=== PATIENT | female | born 1935 | race American Indian/Alaskan Native ===

== ENCOUNTER 2016-11-18 05:46 | Inpatient (IN) | payer MEDICARE ==
[2016-11-15 07:55] VITALS: BMI 29.9
--- NOTE | 2016-11-18 06:48 | CP.PCM.HP ---
History of Present Illness - History of Present Illness History of Present Illness: Orthopedist: Dr Rolon Chief Complaint: Painful right hip HPI: 80 years old female with no significant past medical hx, has been having severe right hip pain diagnosed as Osteoarthritis. She had been treated with analgesics for the past 2-3 years without much improvement. Because of failure of conventional treatment she has decided to have surgery done. She is here for an elective Right Total hip replacement. No fever, Palpitation, SOB, chest pain , nausea, vomits, diarrhea nor urinary symptoms. PMH: Cataract; Glaucoma; HLD PSH: Hysterectomy, Catract extreaction SH: Former smoker; Occasional alcohol; No illegal drug use; Lives alone FH: Sasha of Brain tumor Allergies: NKDA Medications: Crestor Present on Admission - Present on Admission Any Indicators Present on Admission: No History of DVT/PE: No History of Uncontrolled Diabetes: No Urinary Catheter: No Decubitus Ulcer Present: No Review of Systems - Constitutional Constitutional: absent: Anorexia, Chills, Fatigue, Fever, Headache - EENT Eyes: Requires Corrective Lenses. absent: Blurred Vision, Diplopia, Floaters, Sees Flashes Ears: absent: Decreased Hearing, Ear Discharge, Ear Pain, Tinnitus Nose/Mouth/Throat: absent: Epistaxis, Nasal Congestion, Nasal Discharge Additional comments: Upper and lower denture - Cardiovascular Cardiovascular: absent: Chest Pain, Dyspnea, Edema - Respiratory Respiratory: absent: Cough, Dyspnea, Wheezing, Stridor - Gastrointestinal Gastrointestinal: absent: Abdominal Pain, Constipation, Diarrhea, Nausea, Vomiting - Genitourinary Genitourinary: absent: Dysuria, Hematuria, Urinary Frequency, Freq UTI - Musculoskeletal Musculoskeletal: Arthralgias. absent: Muscle Cramps, Muscle Weakness, Myalgias Additional comments: Pain to the right hip on ambulation - Integumentary Integumentary: absent: Skin Ulcer, Sores, Striae, Swelling - Neurological Neurological: absent: Dizziness, Tingling, Weakness - Psychiatric Psychiatric: absent: Anxiety, Depression, Panic Attacks - Endocrine Endocrine: absent: Palpitations, Polydipsia, Polyphagia, Polyuria - Hematologic/Lymphatic Hematologic: absent: Easy Bleeding, Easy Bruising Past Patient History - Past Medical History & Family History Past Medical History?: Yes - Past Social History Smoking Status: Former Smoker Chewing Tobacco Use: No Cigar Use: No Alcohol: Occasional Home Situation {Lives}: Alone - CARDIAC Hx Cardiac Disorders: Yes Hx Hypercholesterolemia: Yes - PULMONARY Hx Respiratory Disorders: No - NEUROLOGICAL Hx Neurological Disorder: No - HEENT Hx HEENT Problems: Yes Hx Cataracts: Yes - RENAL Hx Chronic Kidney Disease: No - ENDOCRINE/METABOLIC Hx Endocrine Disorders: No - HEMATOLOGICAL/ONCOLOGICAL Hx Blood Disorders: No - INTEGUMENTARY Hx Dermatological Problems: No - MUSCULOSKELETAL/RHEUMATOLOGICAL Hx Musculoskeletal Disorders: Yes Hx Arthritis: Yes Hx Osteoarthritis: Yes Other/Comment: LIMIT JOINT MOTION - GASTROINTESTINAL Hx Gastrointestinal Disorders: No - GENITOURINARY/GYNECOLOGICAL Hx Genitourinary Disorders: No - PSYCHIATRIC Hx Psychophysiologic Disorder: No - SURGICAL HISTORY Hx Surgeries: Yes Hx Appendectomy: Yes Hx Cataract Extraction: Yes (O.D) - ANESTHESIA Hx Anesthesia: Yes Hx Anesthesia Reactions: No Hx Malignant Hyperthermia: No Has any member of the family had a problem w/ anesthesia?: No Meds Allergies/Adverse Reactions: Allergies Allergy/AdvReac Type Severity Reaction Status Date / Time No Known Allergies Allergy Verified 11/15/16 07:54 Physical Exam - Constitutional Appears: No Acute Distress - Head Exam Head Exam: ATRAUMATIC, NORMAL INSPECTION, NORMOCEPHALIC - Eye Exam Eye Exam: EOMI, Normal appearance Pupil Exam: NORMAL ACCOMODATION, PERRL - ENT Exam ENT Exam: Mucous Membranes Moist, Normal Exam, Normal External Ear Exam, Normal Oropharynx - Neck Exam Neck exam: Positive for: Full Rom, Normal Inspection. Negative for: Lymphadenopathy, Tenderness - Respiratory Exam Respiratory Exam: Clear to Auscultation Bilateral. absent: Rales, Rhonchi, Wheezes - Cardiovascular Exam Cardiovascular Exam: REGULAR RHYTHM, RRR, +S1, +S2. absent: Gallop, JVD - GI/Abdominal Exam GI & Abdominal Exam: Normal Bowel Sounds, Soft. absent: Mass, Organomegaly, Tenderness - Rectal Exam Rectal Exam: Deferred - Extremities Exam Extremities exam: Positive for: full ROM, normal inspection. Negative for: joint swelling, pedal edema - Back Exam Back exam: NORMAL INSPECTION. absent: CVA tenderness (L), CVA tenderness (R) - Neurological Exam Neurological exam: Alert, Altered, CN II-XII Intact, Oriented x3, Reflexes Normal - Psychiatric Exam Psychiatric exam: Normal Affect, Normal Mood - Skin Skin Exam: Dry, Intact, Normal Color, Warm Results - Vital Signs Recent Vital Signs: Last Vital Signs Temp 97 F L 11/18/16 06:34 Pulse 69 11/18/16 06:37 Resp 20 11/18/16 06:34 BP 139/86 11/18/16 06:34 Pulse Ox 99 11/18/16 06:34 - Labs Labs: 11/11/16 Hb 13g/dl Ht 40 WBC 8.0 Na+ 143 K+4.0 Creatinine: 1.0 BUN 12 CXR no infiltrate/ Aorta Tortouso Assessment & Plan - Assessment and Plan (Free Text) Assessment: #. Osteoarthritis #. HLD #. Glaucoma Plan: 80 years old female with no significant past medical hx, has been having severe right hip pain diagnosed as Osteoarthritis. She had been treated with analgesics for the past 2-3 years without much improvement. Because of failure of conventional treatment she has decided to have surgery done. She is here for an elective Right Total hip replacement. #. Osteoarthritis For Elective Right Total hip replacement - consult Dr Rolon Orthopedic - post surgery Pain management - Post surgery DVT prophylaxis - Post surgery PT/OT #. HLD - Crestor #. Glaucoma - patient to give name of eye drops #. Post surgery DVT Prophylaxis #. code Status Full The patient was cleared for surgery by her PMD. - Date & Time Date: 11/18/16 Time: 06:48
[2016-11-18] MEDS ORDERED: Rocuronium 10 mg/ml (5 ml) ONE ×2 (07:00→11:02)
[2016-11-18] MEDS ORDERED: ePHEDrine 50 mg/ml Inj ONE (07:00)
[2016-11-18] MEDS ORDERED: Succinylcholine 200 mg/10 ml Inj IV ONE (07:00)
[2016-11-18] MEDS ORDERED: Etomidate 20 mg/10ml Inj IV ONE (07:00)
[2016-11-18] MEDS ORDERED: Phenylephrine 10 mg/ml Inj ONE (07:00)
[2016-11-18] MEDS ORDERED: Propofol 10 mg/ml Inj (20 ML) ONE (07:00)
[2016-11-18] MEDS ORDERED: Absorbable Gelatin Sponge Size 100 ONE (07:04)
[2016-11-18] MEDS ORDERED: Bacitracin Ointment 30 GM TUBE ONE (07:04)
[2016-11-18] MEDS ORDERED: Thrombin Topical 5,000 IU Spray Kit ONE (07:05)
[2016-11-18] MEDS ORDERED: Sevoflurane - Inhalation Anesthetic Liq (250 ml) ONE (07:12)
[2016-11-18] MEDS ORDERED: Midazolam 2 MG/2 ML VIAL ONE (08:00)
[2016-11-18] MEDS ORDERED: Morphine 1 mg/ml preservative-free Inj(Duramorph) ONE (08:01)
[2016-11-18] MEDS ORDERED: Lactated Ringer's 1,000 ML IV ONE ×3 (08:55→13:05)
[2016-11-18] MEDS ORDERED: Neostigmine Methylsulfate 3mg/3ml Syringe IV ONE (12:57)
--- NOTE | 2016-11-18 13:41 | PCM.SURG1 ---
Surgeon's Initial Post Op Note - Surgeon's Notes Surgeon: Dr. Gonzales MD Animal Chiropractor: Dr. Octavia Ryan, PGY1; JAS PendletonA Type of Anesthesia: General Endo, Spinal Anesthesia Administered By: Dr. Olga MD Pre-Operative Diagnosis: Right hip primary osteoarthritis. Operative Findings: See dictation. Time in room: 08:55; Incision time: 10:25; End Time 13:25; Time out of room: 13:35 Post-Operative Diagnosis: Right hip primary osteoarthritis Operation Performed: 1) Right total hip replacement. 2) Rigth femoral neck osteotom. 3) Arthrotomy & synovectomy. 4) Autogenopus bone graft of acetabulum. 5) Release of Ilio-psoas tendon. Specimen/Specimens Removed: None Estimated Blood Loss: EBL {In ML}: 475 Blood Products Given: N/A Drains Used: No Drains Post-Op Condition: Good Date of Surgery/Procedure: 11/18/16 Time of Surgery/Procedure: 13:35
[2016-11-18] MEDS ORDERED: HYDROmorphone 0.5 mg/0.5 ml ISec IVP PRN (13:42)
[2016-11-18] MEDS ORDERED: DiphenhydrAMINE 50 mg/ml Inj IVP PRN (13:47)
[2016-11-18] MEDS ORDERED: Naloxone 0.4 mg/ml Inj (Adult) IVP PRN (13:47)
--- NOTE | 2016-11-18 15:34 | RAD ---
Indication: Status post hip replacement surgery Comparison: None available Right hip radiographs Findings: The patient is status post right hip arthroplasty. Alignment appears satisfactory. Soft tissue swelling, subcutaneous emphysema, and surgical aleksander compatible with recent postoperative history. Degenerative changes of the lower lumbar spine. Impression: Status post right hip arthroplasty as above.
[2016-11-18] MEDS ORDERED: Sodium Chloride 0.9% 1,000 ML IV SCH (16:30)
--- NOTE | 2016-11-18 16:54 | RAD ---
PROCEDURE: Fluoroscopy up to 1 hr. HISTORY: ORIF RIGHT HIP COMPARISON: None TECHNIQUE: Standard protocol for this study/examination. FINDINGS: Total fluoroscopic time (continuous mode) utilized during the procedure: 22.5 seconds. Submitted images from the current procedure: 11.0 IMPRESSION: Less than 1 hr fluoroscopic time utilized during performance of the procedure.
[2016-11-18] MEDS: ceFAZolin 1 GM in Sodium Chloride 0.9% 100 ML IVPB SCH (18:23)
[2016-11-19] MEDS: ceFAZolin 1 GM in Sodium Chloride 0.9% 100 ML IVPB SCH ×2 (00:58→08:46)
[2016-11-19 07:43] LABS: MEAN CELL VOLUME 90.4 fl (81.0-99.0); MEAN CORPUSCULAR HEMOGLOBIN 28.7 pg (27.0-31.0); MEAN CORPUSCULAR HGB CONC 31.8 g/dL (33.0-37.0); WHITE BLOOD COUNT 9.4 K/uL (4.8-10.8)
[2016-11-19 08:01] LABS: PARTIAL THROMBOPLASTIN TIME 23.8 SECONDS (23.3-32.5)
[2016-11-19 08:13] LABS: BLOOD UREA NITROGEN 9 mg/dl (7-17); CALCIUM 8.1 mg/dL (8.4-10.2); CARBON DIOXIDE 19 mmol/L (22-30); CHLORIDE 105 mmol/L (98-107); GFR AFRICAN-AMERICAN > 60; GLUCOSE,RANDOM 146 mg/dL (65-105); SODIUM 133 mmol/l (132-148)
[2016-11-19 08:19] LABS: POTASSIUM 4.7 MMOL/L (3.6-5.0)
[2016-11-19] MEDS: Enoxaparin 40 mg Syringe SC SCH (08:48)
[2016-11-19] MEDS: Pantoprazole 40 mg EC Tab PO SCH (08:48)
--- NOTE | 2016-11-19 09:52 | OP ---
PROCEDURE DATE: 11/18/2016 PREOPERATIVE DIAGNOSIS: Primary right hip osteoarthritis. 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 PROCEDURES: 1. Right total hip replacement, anterior approach. 2. Right femoral neck osteotomy. 3. Arthrotomy and synovectomy. 4. Release of iliopsoas tendon. 5. Autogenous bone graft to the acetabulum. SURGEON: Brett Rolon MD KNIFEMAN: Dr. Octavia Ashraf, PGY-1 SECOND MICROFILMING DOCUMENT PREPARER: Alana Levy, Certified Registered Nursing [place] ANESTHESIA: General endotracheal anesthesia, spinal anesthesia by Dr. Espinoza. SPECIMENS REMOVED: Bone, cartilage, synovium. BLOOD LOSS: Approximately 400 mL. BLOOD PRODUCTS: None given. DRAINS: None. POSTOPERATIVE CONDITION: Good. OPERATIVE INDICATION: The patient is a 80-year-old woman who is status post severe right hip pain an d restricted range of motion. The patient has been suffering with this for a period of time. The pa tient has also some low back pain, but her primary presenting complaint is pain and restricted range of motion of the right hip with evidence of a flexion contracture. The patient has a mild leg length inequality, right less than left. The patient seeks consultation in my office for total hip replace ment arthroplasty. The patient can no longer stand the discomfort. The patient was cleared by her [facility] doctor. Pros, cons, risks and benefits of surgical approach were discussed. The possibility of mechanical failure, infection, thromboembolic disease, recurrent or persistent leg length inequali ty, secondary or tertiary surgery is discussed. The patient wishes the surgery to be accomplished. After having obtained informed consent in the above fashion, after having identified side, site and p rocedure in a critical pause/timeout, after the satisfactory induction of the anesthetic by Dr. Yolanda rizvi, spinal and general, the patient identified in the supine position with all bony prominences well padded, the patient is placed in the AMIS positioner for the anterior approach to the hip, the anteri or Hueter approach to the hip. OPERATIVE PROCEDURE: After having obtained informed consent, after having identified side, site and procedure in a critical pause/timeout, after the satisfactory induction of the anesthetic, the right lower extremity is placed in a traction device with the foot of the operating room table broken. All bony prominences are well padded. The initial incision, after sterilely prepping and draping, is de scribed 3 fingerbreadths posterior to the ASIS and 1 fingerbreadth distally, extending 4-5 fingerbrea dths distal to that point. After having obtained informed consent, having identified side, site and procedure in a critical pause/timeout, after sterilely prepping and draping, incision is described in the above fashion. The initial incision is carried down through the skin and subcutaneous tissue. The fascia on the tensor fasciae femoris is carefully divided. The leading anterior edge is grasped using an Allis clamp and the tensor fasciae femoris muscle is taken down from the fascia. The modifi ed Sarahon-Mayra retractor is placed and the fascia inferior to the rectus femoris is transected. Th e fat pad is removed and incised and the retractor is now placed deep to the rectus femoris. The ref lected head of rectus femoris from the anterior inferior iliac spine is carefully released. Bleeding points are controlled and at this point in time, the lateral femoral circumflex vessel, in particula rly, the anterior branch of the lateral femoral circumflex vessels are released and they are controll ed and cauterized. This having been accomplished, the fat pad superior to the capsule, anterior to t he capsule is released and resected. Hemostasis is controlled with the Aquamantys. Again, bleeding is controlled with the Aquamantys, especially the lateral femoral circumflex vessels. At this point in time, a capsulotomy is accomplished beginning at the superior aspect of the margin of the acetabul um in a triangular fashion distally to the lesser trochanter. The capsule is elevated, the trochante andrae tuberosity is palpated and the capsular flap is tagged. Medacta retractors are placed. The femo ral neck osteotomy had been planned and the femoral neck osteotomy is accomplished at approximately 1 5 mm above the lesser trochanter, beginning at the inferior margin of the saddle. Femoral neck osteo marquita is accomplished. Traction is applied and with external rotation to 45 degrees of the femur, the cut neck of the acetabulum is identified. The corkscrew is placed, the femoral head is removed. At this point in time, the labrum is carefully excised and pulvinar is excised. Arthrotomy and synovec marquita in this fashion is accomplished. The femoral neck osteotomy is planned, both preoperatively and intraoperatively, and the femoral neck osteotomy is accomplished and a small napkin ring is removed because the initial cut was too high. It was cut down to approximately 15 mm. This having been acco mplished, the femoral head is measured. At this point in time, reaming is accomplished medially, pos teriorly and in the direction of the cup at 40 degrees of abduction and approximately 15 degrees of a nteversion. This having been accomplished, reaming having been accomplished, trialing is accomplishe d and found to be acceptable. The reamings are denuded of articular cartilage and are used to bone g raft the acetabulum. This having been accomplished, reaming is accomplished to a #56 mm cup. The 56 mm cup is impacted in 40 degrees of abduction and 15 degrees of anteversion. Autograft bone graftin g had been accomplished to the acetabulum. At this point in time, attention is turned to the femur. Great care is taken to avoid injury to the femoral nerve. The marked contractures are noted. Obvio usly, a capsulotomy had been accomplished. Attention is turned to the iliopsoas. A portion of the i liopsoas tendon is released, release of the femur is carried out with external rotation, abduction an d hyperextension of the femur. Release is carried out from the pubofemoral ligament to the ischiofem oral ligament to the iliofemoral ligament. At this point in time, retractors are placed, both medial ly and posteriorly. The short external rotators are released and the canal is found using a bur. At this point in time, the rasp is introduced. Sequential rasping is carried out to a #2 broach. Broa gurjit is accomplished with a -3.5 head and the appropriate outer bearing of 56 mm. The hip is reduce d, found to be stable in all planes. At this point in time, trialing is completed. The appropriate size #2 Medacta femoral component is impacted in neutral , again with a -3.5 head and a [address] bearing. It should be noted that a portion of the iliopsoas tendon is released. The capsule hav ing been released, the pubofemoral, ischiofemoral, iliofemoral ligaments having been released to mobi lize the femur, hemostasis carefully controlled. The hip is found to be stable after reduction in al l planes. The wound is thoroughly irrigated. Under the surgeon's direction, the fluoroscope is posi tioned, video images are generated, therapeutic decisions are made therefrom. This having been accom plished, closure is in layers. The capsular flap and closure of the fascia with 0 Quill, followed by 0 Quill, Vicryl and aleksander for skin. No Hemovac is employed, hemostasis having been controlled wit h the Aquamantys. OPERATIVE PROCEDURES: 1. Right total hip replacement, anterior approach. 2. Femoral neck osteotomy. Again, a separate procedure because of the fact due to the flexion contr acture and iliopsoas tendon, a napkin ring technique had to be employed to perform an accurate femora l neck osteotomy, arthrotomy and synovectomy, release of the iliopsoas tendon, autograft bone graftin g to the acetabulum. It should be noted that Alana Levy, Certified Registered Nursing [place] was essential to t he completion of this procedure. Brett Rolon MD cc: [id number] TT: 11/19/2016 09:50:54 en
--- NOTE | 2016-11-19 10:12 | CP.PCM.CON ---
History of Present Illness - History of Present Illness History of Present Illness: THE PATIENT IS A 80 YEAR OLD FEMALE WHO HAS SEVERE RIGHT HIP OA NOT RESPONDING TO ANALGESICS AND WAS ADMITTED YESTERDAY AND HAD A TOTAL RHR. SHE ALSO HAS A HISTORY OF HYPERLIPIDEMIA AND GLAUCOMA. SHE HAD CATARACT SURGERY AND A HYSTERECTOMY IN THE PAST. DR. HENRY ASKED ME TO SEE HER ON CONSULT AND FOLLOW HER DURING HER HOSPITALIZATION. SHE ONLY COMPLAINS OF PAIN AT THE RIGHT HIP SURGICAL SITE. SHE DENIES CHEST PAIN OR SOB. Past Patient History - Past Medical History & Family History Past Medical History?: Yes - Past Social History Smoking Status: Former Smoker Chewing Tobacco Use: No Cigar Use: No Alcohol: Occasional Home Situation {Lives}: Alone - CARDIAC Hx Cardiac Disorders: Yes Hx Hypercholesterolemia: Yes - PULMONARY Hx Respiratory Disorders: No - NEUROLOGICAL Hx Neurological Disorder: No - HEENT Hx HEENT Problems: Yes Hx Cataracts: Yes - RENAL Hx Chronic Kidney Disease: No - ENDOCRINE/METABOLIC Hx Endocrine Disorders: No - HEMATOLOGICAL/ONCOLOGICAL Hx Blood Disorders: No - INTEGUMENTARY Hx Dermatological Problems: No - MUSCULOSKELETAL/RHEUMATOLOGICAL Hx Musculoskeletal Disorders: Yes Hx Arthritis: Yes Hx Osteoarthritis: Yes Other/Comment: LIMIT JOINT MOTION - GASTROINTESTINAL Hx Gastrointestinal Disorders: No - GENITOURINARY/GYNECOLOGICAL Hx Genitourinary Disorders: No - PSYCHIATRIC Hx Psychophysiologic Disorder: No - SURGICAL HISTORY Hx Surgeries: Yes Hx Appendectomy: Yes Hx Cataract Extraction: Yes (O.D) - ANESTHESIA Hx Anesthesia: Yes Hx Anesthesia Reactions: No Hx Malignant Hyperthermia: No Has any member of the family had a problem w/ anesthesia?: No Meds Allergies/Adverse Reactions: Allergies Allergy/AdvReac Type Severity Reaction Status Date / Time No Known Allergies Allergy Verified 11/15/16 07:54 - Medications Medications: Current Medications Acetaminophen (Tylenol 325mg Tab) 650 mg PO Q6 PRN PRN Reason: Fever >100.4 F Diphenhydramine HCl (Benadryl) 25 mg IVP Q6 PRN PRN Reason: Itching / Pruritus Docusate Sodium (Colace) 100 mg PO BID [facility] Last Admin: 11/19/16 08:48 Dose: 100 mg Enoxaparin Sodium (Lovenox) 40 mg SC DAILY [facility] PRN Reason: Protocol Last Admin: 11/19/16 08:48 Dose: 40 mg Hydromorphone HCl (Dilaudid 0.2 Mg/Ml [employer]) 0 mg IV PRN PRN; Protocol PRN Reason: Pain, severe (8-10) Sodium Chloride (Sodium Chloride 0.9%) 1,000 mls @ 100 mls/hr IV .Q10H [facility] Naloxone HCl (Narcan) 0.1 mg IVP Q2M PRN PRN Reason: Shortness of Breath Ondansetron HCl (Zofran Inj) 4 mg IVP Q8 PRN PRN Reason: Nausea/Vomiting Pantoprazole Sodium (Protonix Ec Tab) 40 mg PO DAILY [facility] Last Admin: 11/19/16 08:48 Dose: 40 mg Physical Exam - Respiratory Exam Respiratory Exam: Clear to Auscultation Bilateral - Cardiovascular Exam Cardiovascular Exam: REGULAR RHYTHM, +S1, +S2 - Additional Findings Additional findings: 12 LEAD EKG SHOWS NSR, LAD Results - Vital Signs Recent Vital Signs: Last Vital Signs Temp 98.5 F 11/19/16 07:55 Pulse 84 11/19/16 07:55 Resp 18 11/19/16 07:55 BP 109/70 11/19/16 07:55 Pulse Ox 100 11/19/16 07:55 - Labs Result Diagrams: 11/19/16 07:10 11/19/16 06:15 Labs: Laboratory Results - last 24 hr 11/18/16 11/19/16 11/19/16 08:32 06:15 06:15 WBC RBC Hgb Hct MCV MCH MCHC RDW PT 11.4 H INR 1.10 H APTT 23.8 Sodium 133 Potassium 4.7 Chloride 105 Carbon Dioxide 19 L Anion Gap 14 BUN 9 Creatinine 0.8 Est GFR ( Amer) > 60 Est GFR (Non-Af Amer) > 60 Random Glucose 146 H Calcium 8.1 L Blood Type Confirm A POSITIVE 11/19/16 07:10 WBC 9.4 RBC 3.65 L Hgb 10.5 L Hct 33.0 L MCV 90.4 MCH 28.7 MCHC 31.8 L RDW 14.0 PT INR APTT Sodium Potassium Chloride Carbon Dioxide Anion Gap BUN Creatinine Est GFR ( Amer) Est GFR (Non-Af Amer) Random Glucose Calcium Blood Type Confirm Assessment & Plan - Assessment and Plan (Free Text) Assessment: S/P TOTAL RHR FOR SEVERE OA HYPERLIPIDEMIA STABLE Plan: CONTINUE CRESTOR, LOVENOX AND PAIN MEDICATIONS FOR REHAB
--- NOTE | 2016-11-19 11:50 | CP.PCM.PN ---
Subjective - Date & Time of Evaluation Date of Evaluation: 11/19/16 Time of Evaluation: 11:30 - Subjective Subjective: No fever Pain controlled no CP no SOB no abd pain had urinary retention post now - now voiding freely Objective - Vital Signs/Intake and Output Vital Signs (last 24 hours): Temp Pulse Resp BP Pulse Ox 98.5 F 84 18 94/61 L 100 11/19/16 07:55 11/19/16 07:55 11/19/16 07:55 11/19/16 11:26 11/19/16 07:55 - Medications Medications: Current Medications Acetaminophen (Tylenol 325mg Tab) 650 mg PO Q6 PRN PRN Reason: Fever >100.4 F Diphenhydramine HCl (Benadryl) 25 mg IVP Q6 PRN PRN Reason: Itching / Pruritus Docusate Sodium (Colace) 100 mg PO BID [facility] Last Admin: 11/19/16 08:48 Dose: 100 mg Enoxaparin Sodium (Lovenox) 40 mg SC DAILY [facility] PRN Reason: Protocol Last Admin: 11/19/16 08:48 Dose: 40 mg Hydromorphone HCl (Dilaudid 0.2 Mg/Ml [employer]) 0 mg IV PRN PRN; Protocol PRN Reason: Pain, severe (8-10) Sodium Chloride (Sodium Chloride 0.9%) 1,000 mls @ 100 mls/hr IV .Q10H [facility] Naloxone HCl (Narcan) 0.1 mg IVP Q2M PRN PRN Reason: Shortness of Breath Ondansetron HCl (Zofran Inj) 4 mg IVP Q8 PRN PRN Reason: Nausea/Vomiting Pantoprazole Sodium (Protonix Ec Tab) 40 mg PO DAILY [facility] Last Admin: 11/19/16 08:48 Dose: 40 mg - Labs Labs: 11/19/16 07:10 11/19/16 06:15 PT 11.4 SECONDS (9.6-11.2) H 11/19/16 06:15 INR 1.10 (0.92-1.08) H 11/19/16 06:15 APTT 23.8 SECONDS (23.3-32.5) 11/19/16 06:15 - Constitutional Appears: No Acute Distress - Head Exam Head Exam: NORMAL INSPECTION, NORMOCEPHALIC - Eye Exam Eye Exam: EOMI, Normal appearance Pupil Exam: NORMAL ACCOMODATION - ENT Exam ENT Exam: Mucous Membranes Moist, Normal External Ear Exam - Neck Exam Neck Exam: Full ROM. absent: Meningismus - Respiratory Exam Respiratory Exam: NORMAL BREATHING PATTERN. absent: Rales, Wheezes, Respiratory Distress - Cardiovascular Exam Cardiovascular Exam: REGULAR RHYTHM, +S1, +S2 - GI/Abdominal Exam GI & Abdominal Exam: Soft, Normal Bowel Sounds. absent: Tenderness - Extremities Exam Extremities Exam: Normal Capillary Refill. absent: Calf Tenderness, Pedal Edema Additional comments: right hip dressing intact - Back Exam Back Exam: Full ROM. absent: CVA tenderness (L), CVA tenderness (R) - Neurological Exam Neurological Exam: Alert, Awake, CN II-XII Intact, Oriented x3 Neuro motor strength exam: Left Upper Extremity: 5, Right Upper Extremity: 5, Left Lower Extremity: 5, Right Lower Extremity: 5 - Psychiatric Exam Psychiatric exam: Normal Affect, Normal Mood - Skin Skin Exam: Dry, Normal Color, Warm Assessment and Plan - Assessment and Plan (Free Text) Assessment: 80 years old female with no significant past medical hx, has been having severe right hip pain diagnosed as Osteoarthritis. She had been treated with analgesics for the past 2-3 years without much improvement. Because of failure of conventional treatment she has decided to have surgery done. Underwent Right THR on 11/18. 1 Primary Osteoarthritis s/p Right Total hip replacement - Dr Rolon Orthopedic Sx - Pain management- d/c 2ND PRESSMAN pump , start Percocet -Pain controlled - DVT prophylaxis - PT/OT consult - Incentive spirometry - Plan for LILIANA placement in am 2. Hyperlipidemia - Crestor 3. Glaucoma - cont eye drops from home- pt's family to bring 4.Post surgery DVT Prophylaxis Lovenox 5. Post op Urinary Retention likely sec to Anesthesia, resolved pt was straight cath last night, now voiding freely 6. Mild Acute blood loss Anemia, post op - start Ferrous #. code Status Full Surrogate Decision maker : Eli - sister
[2016-11-19] MEDS: Oxycodone/Acetaminophen 5/325 mg Tab PO PRN ×2 (14:53→21:12)
[2016-11-19] MEDS ORDERED: Sodium Chloride 0.9% 1,000 ML IV SCH (17:02)
[2016-11-20] MEDS: Oxycodone/Acetaminophen 5/325 mg Tab PO PRN ×2 (08:04→12:21)
[2016-11-20] MEDS: Enoxaparin 40 mg Syringe SC SCH (08:10)
[2016-11-20 08:23] VITALS: BP 109/63; PULSE 92; RESP 20; O2SAT 96
--- NOTE | 2016-11-20 10:58 | CP.PCM.PN ---
Subjective - Date & Time of Evaluation Date of Evaluation: 11/20/16 Time of Evaluation: 10:30 - Subjective Subjective: NO CHEST PAIN OR SOB JUST PAIN AT SURGICAL SITE Objective - Vital Signs/Intake and Output Vital Signs (last 24 hours): Temp Pulse Resp BP Pulse Ox 100.4 F H 92 H 20 109/63 96 11/20/16 08:23 11/20/16 08:23 11/20/16 08:23 11/20/16 08:23 11/20/16 08:23 - Medications Medications: Current Medications Acetaminophen (Tylenol 325mg Tab) 650 mg PO Q6 PRN PRN Reason: Fever >100.4 F Atorvastatin Calcium (Lipitor) 10 mg PO HS [facility] Last Admin: 11/19/16 21:12 Dose: 10 mg Diphenhydramine HCl (Benadryl) 25 mg IVP Q6 PRN PRN Reason: Itching / Pruritus Docusate Sodium (Colace) 100 mg PO BID [facility] Last Admin: 11/20/16 08:10 Dose: 100 mg Enoxaparin Sodium (Lovenox) 40 mg SC DAILY [facility] PRN Reason: Protocol Last Admin: 11/20/16 08:10 Dose: 40 mg Ferrous Sulfate (Feosol) 325 mg PO DAILY [facility] Last Admin: 11/20/16 08:13 Dose: 325 mg Sodium Chloride (Sodium Chloride 0.9%) 1,000 mls @ 80 mls/hr IV .[id number] [facility] Last Admin: 11/19/16 17:48 Dose: 80 mls/hr Naloxone HCl (Narcan) 0.1 mg IVP Q2M PRN PRN Reason: Shortness of Breath Ondansetron HCl (Zofran Inj) 4 mg IVP Q8 PRN PRN Reason: Nausea/Vomiting Oxycodone/Acetaminophen (Percocet 5/325 Mg Tab) 1 tab PO Q4 PRN PRN Reason: Pain, moderate (4-7) Stop: 11/22/16 14:19 Last Admin: 11/20/16 08:04 Dose: 1 tab Pantoprazole Sodium (Protonix Ec Tab) 40 mg PO DAILY [facility] Last Admin: 11/19/16 08:48 Dose: 40 mg - Labs Labs: 11/19/16 07:10 11/19/16 06:15 PT 11.4 SECONDS (9.6-11.2) H 05/23/17 06:15 INR 1.10 (0.92-1.08) H 11/19/16 06:15 APTT 23.8 SECONDS (23.3-32.5) 11/19/16 06:15 - Respiratory Exam Respiratory Exam: Clear to Ausculation Bilateral - Cardiovascular Exam Cardiovascular Exam: REGULAR RHYTHM, +S1, +S2 Assessment and Plan - Assessment and Plan (Free Text) Assessment: RIGHT TOTAL HIP REPLACEMENT HYPERLIPIDEMIA Plan: CONTINUE ATORVASTATIN AND LOVENOX FOR SUBACUTE REHAB
[2016-11-20] MEDS: Pantoprazole 40 mg EC Tab PO SCH (12:22)
[2016-11-20 13:28] VITALS: TEMP 99.1
--- NOTE | 2016-11-20 16:08 | CP.PCM.DIS ---
Provider - Provider Date of Admission: 11/18/16 16:25 Attending physician: Joaquim Lovell MD Primary care physician: Brett Rolon III, MD Consults: cardiology consult ortho consult Time Spent in preparation of Discharge (in minutes): 15 Hospital Course - Lab Results Lab Results: Most Recent Lab Values WBC 9.4 K/uL (4.8-10.8) 11/19/16 07:10 RBC 3.65 Mil/uL (3.80-5.20) L 11/19/16 07:10 Hgb 10.5 g/dL (12.0-16.0) L 11/19/16 07:10 Hct 33.0 % (34.0-47.0) L 11/19/16 07:10 MCV 90.4 fl (81.0-99.0) 11/19/16 07:10 MCH 28.7 pg (27.0-31.0) 11/19/16 07:10 MCHC 31.8 g/dL (33.0-37.0) L 11/19/16 07:10 RDW 14.0 % (11.5-14.5) 11/19/16 07:10 Plt Count 184 K/uL (130-400) 11/19/16 07:10 PT 11.4 SECONDS (9.6-11.2) H 11/19/16 06:15 INR 1.10 (0.92-1.08) H 11/19/16 06:15 APTT 23.8 SECONDS (23.3-32.5) 11/19/16 06:15 Sodium 133 mmol/l (132-148) 11/19/16 06:15 Potassium 4.7 MMOL/L (3.6-5.0) 11/19/16 06:15 Chloride 105 mmol/L (98-107) 11/19/16 06:15 Carbon Dioxide 19 mmol/L (22-30) L 11/19/16 06:15 Anion Gap 14 (10-20) 11/19/16 06:15 BUN 9 mg/dl (7-17) 11/19/16 06:15 Creatinine 0.8 mg/dL (0.7-1.2) 11/19/16 06:15 Est GFR ( Amer) > 60 11/19/16 06:15 Est GFR (Non-Af Amer) > 60 11/19/16 06:15 Random Glucose 146 mg/dL (65-105) H 11/19/16 06:15 Calcium 8.1 mg/dL (8.4-10.2) L 11/19/16 06:15 Blood Type A POSITIVE 11/18/16 06:30 Blood Type Confirm A POSITIVE 11/18/16 08:32 Antibody Screen Negative 11/18/16 06:30 Crossmatch See Detail 11/18/16 06:30 BBK History Checked No verified bt 11/18/16 06:30 - Hospital Course Hospital Course: 80 years old female with no significant past medical hx, has been having severe right hip pain diagnosed as Osteoarthritis. She had been treated with analgesics for the past 2-3 years without much improvement. Because of failure of conventional treatment she has decided to have surgery done. Underwent Right THR on 11/18 and post op doing well. Will discharge to [facility] to continue physical therapy . 1 Primary Osteoarthritis s/p Right Total hip replacement Dr Rolon [facility] consulted Doing well post op Continue Pain management with Percoset PRN DVT prophylaxis with Lovenox PT/OT consult appreciated. will d/c to [facility] for physical therapy 2. Hyperlipidemia on Crestor 3. Glaucoma cont eye drops from home 4.Post surgery DVT Prophylaxis Lovenox 5. Post op Urinary Retention likely sec to Anesthesia, resolved pt was straight cath lpost op and now voiding freely 6. Mild Acute blood loss Anemia, post op started Ferrous sulfate Discharge Exam - Head Exam Head Exam: NORMAL INSPECTION, NORMOCEPHALIC - Eye Exam Eye Exam: EOMI, Normal appearance, PERRL Pupil Exam: NORMAL ACCOMODATION - ENT Exam ENT Exam: Mucous Membranes Moist, Normal Exam - Neck Exam Neck exam: Full Rom, Normal Inspection - Respiratory Exam Respiratory Exam: Clear to PA & Lateral, NORMAL BREATHING PATTERN. absent: Rales, Rhonchi, Wheezes - Cardiovascular Exam Cardiovascular Exam: REGULAR RHYTHM, RRR, +S1, +S2. absent: JVD - GI/Abdominal Exam GI & Abdominal Exam: Normal Bowel Sounds, Soft. absent: Distended, Guarding, Rebound, Tenderness - Rectal Exam Rectal Exam: Deferred - Extremities Exam Extremities exam: normal capillary refill, normal inspection, pedal pulses present - Back Exam Back exam: NORMAL INSPECTION - Neurological Exam Neurological exam: Alert, CN II-XII Intact, Reflexes Normal - Psychiatric Exam Psychiatric exam: Normal Affect - Skin Skin Exam: Dry, Intact, Normal Color, Warm Discharge Plan - Follow Up Plan Condition: GOOD Disposition: TRANSF TO SNF Patient education suggested?: Yes Instructions: Precautions after Total Joint Replacement Surgery (DC), Total Hip Replacement (DC) Additional Instructions: AQUACEL DRESSING REMOVED 7 DAYS. RT. HIP. WEIGHT BEARING TOLERATED. Referrals: Bertt Rolon III, MD [Primary Care Provider] -
--- NOTE | 2016-11-22 19:11 | CARD ---
APPROVED REPORT EKG Measurement Heart [id number] <Conclusion> Normal sinus rhythm Normal ECG
== END 2016-11-20 14:34 | DRG 470 ==
LOC: H.OPSURG 05:46 → H.MEDSURG1 16:25
PROVIDERS: ADMIT Hospitalist; ATTEND Hospitalist
PROC: 0SB90ZZ Excision of Right Hip Joint, Open Approach (ICD-10-PCS; 2016-11-18)
PROC: 0SN90ZZ Release Right Hip Joint, Open Approach (ICD-10-PCS; 2016-11-18)
PROC: 0SR90JZ Replacement of Right Hip Joint with Synthetic Substitute, Open Approach (ICD-10-PCS; principal; 2016-11-18 07:45)
DX: M16.11 Unilateral primary osteoarthritis, right hip (principal); D62 Acute posthemorrhagic anemia; E78.5 Hyperlipidemia, unspecified; H40.9 Unspecified glaucoma; Z87.891 Personal history of nicotine dependence; M65.9 Synovitis and tenosynovitis, unspecified; M24.551 Contracture, right hip; R33.0 Drug induced retention of urine; T41.205A Adverse effect of unspecified general anesthetics, initial encounter; N99.89 Other postprocedural complications and disorders of genitourinary system; Y83.8 Other surgical procedures as the cause of abnormal reaction of the patient, or of later complication, without mention of misadventure at the time of the procedure